=== PATIENT | female | born 1945 | race Caucasian/White ===

== ENCOUNTER 2017-07-17 11:40 | Emergency (ER) | payer OTHER ==
[~2017-07-17] VITALS: Ht 157.5 cm; Wt 93.4 kg
[~2017-07-17 11:40] MED LIST: ASPI81TA2 PO; ATEN100T PO; FENO135C PO; LEVO100T9 PO; LORA-258 PO; MOME13HF IH; OMEP20CA10 PO; PROM6.25 PO; TIOT18CA3 IH; TRIA1CAP2 PO; VALS320T10 PO
[2017-07-17 11:44] VITALS: BP 144/89; PULSE 70; RESP 21; TEMP 97.2; O2SAT 94
[2017-07-17] MEDS ORDERED: PREDNISONE 20 MG TABLET PO ONE (13:45)
[2017-07-17] MEDS ORDERED: IPRATROPIUM/ALBUTEROL SULFATE 3 ML AMPUL.NEB INH ONE ×3 (13:45→15:45)
[2017-07-17 13:57] LABS: BASOPHILS # (AUTO) 0.1 K/uL (0.0-0.2); BASOPHILS % (AUTO) 1.1 % (0.0-2.0); EOSINOPHILS # (AUTO) 0.4 K/uL (0.0-0.4); EOSINOPHILS % (AUTO) 4.5 % (0.0-4.0); HEMATOCRIT 43.3 % (36-48); HEMOGLOBIN 14.4 g/dL (12.0-16.0); LYMPHOCYTES # (AUTO) 1.8 K/uL (1.0-5.5); LYMPHOCYTES % (AUTO) 21.6 % (20.5-51.5); MEAN CORPUSCULAR HEMOGLOBIN 29 pg (27-31); MEAN CORPUSCULAR HGB CONC 33 % (32-36); MEAN CORPUSCULAR VOLUME 87 fL (79.0-98.0); MONOCYTES # (AUTO) 0.9 K/uL (0.0-1.0); MONOCYTES % (AUTO) 11.5 % (1.7-9.3); NEUTROPHILS % (AUTO) 61.3 % (40.0-70.0); PLATELET COUNT (AUTO) 242 K/uL (130-430); RED BLOOD CELL COUNT(AUTO) 4.95 MIL/uL (4.2-6.2); RED CELL DISTRIBUTION WIDTH 12.8 % (9.0-15.0); WHITE BLOOD COUNT (AUTO) 8.2 K/uL (4.8-10.8)
[2017-07-17 14:07] LABS: ANION GAP 11 (5-15); CALCIUM 9.1 mg/dL (8.4-11.0); CHLORIDE 103 mmol/L (98-107); CREATININE 0.81 mg/dL (0.55-1.30); GLUCOSE 120 mg/dL (70-99); POTASSIUM 4.1 mmol/L (3.5-5.1); SODIUM SERUM 141 mmol/L (136-145); UREA NITROGEN, BLOOD 17 mg/dL (8-21)
[2017-07-17 14:15] LABS: TOTAL BILIRUBIN 0.7 mg/dL (0.0-1.0)
[2017-07-17 14:16] LABS: ALANINE AMINOTRANSFERASE 27 U/L (12-78); ALBUMIN 3.4 g/dL (3.4-4.8); ASPARTATE AMINOTRANSFERASE 20 U/L (10-37)
[2017-07-17 16:00] VITALS: BP 133/72; PULSE 62; RESP 16; TEMP 97.6; O2SAT 96
== END 2017-07-17 16:00 | disposition home or self-care (01) ==
LOC: SED 11:40
DX: J18.9 Pneumonia, unspecified organism (principal); J44.9 Chronic obstructive pulmonary disease, unspecified; K21.9 Gastro-esophageal reflux disease without esophagitis; I10 Essential (primary) hypertension; Z86.73 Personal history of transient ischemic attack (TIA), and cerebral infarction without residual deficits; E05.00 Thyrotoxicosis with diffuse goiter without thyrotoxic crisis or storm; Z79.82 Long term (current) use of aspirin; Z79.899 Other long term (current) drug therapy
CPT/HCPCS: 36415; 71010; 80053; 83605; 84145; 84484; 85025; 85379; 86710; 93005; 94640; 99285; J7512

== ENCOUNTER 2023-08-18 17:16 | Emergency (ER) | payer OTHER ==
[~2023-08-18] VITALS: Ht 157.5 cm; Wt 97.5 kg
[~2023-08-18 17:16] MED LIST changes: +ASPI-1155 PO; -ASPI81TA2 PO; -MOME13HF IH; +MOME13HF11 IH; -OMEP20CA10 PO; +OMEP20CA15 PO; -PROM6.25 PO; +PROM6.2527 PO; -VALS320T10 PO; +VALS320T2 PO
[2023-08-18 17:33] VITALS: BP_SYST 148; PULSE 69; RESP 18; TEMP 98.3; O2SAT 95
[2023-08-18] MEDS ORDERED: IBUPROFEN 800 MG TABLET PO ONE (20:15)
[2023-08-18] MEDS ORDERED: IBUP-1969 PO (20:39)
[2023-08-18] MEDS ORDERED: SOM350 PO (20:39)
[2023-08-18 20:46] VITALS: BP_SYST 148; PULSE 69; RESP 18; TEMP 98.3; O2SAT 95
== END 2023-08-18 20:46 | disposition home or self-care (01) ==
LOC: SED 17:16
DX: S13.4XXA Sprain of ligaments of cervical spine, initial encounter (principal); S80.02XA Contusion of left knee, initial encounter; S00.83XA Contusion of other part of head, initial encounter; J44.9 Chronic obstructive pulmonary disease, unspecified; K21.9 Gastro-esophageal reflux disease without esophagitis; I10 Essential (primary) hypertension; J45.909 Unspecified asthma, uncomplicated; Z88.5 Allergy status to narcotic agent; Z88.6 Allergy status to analgesic agent; V89.2XXA Person injured in unspecified motor-vehicle accident, traffic, initial encounter; Y93.89 Activity, other specified; Y92.89 Other specified places as the place of occurrence of the external cause; Y99.8 Other external cause status
CPT/HCPCS: 70450-TC; 71045; 72125-TC; 73560-TC; 76376; 99284